=== PATIENT | male | born 1940 | race Caucasian/White ===

== ENCOUNTER → 2017-04-19 | Outpatient (CLI) | payer OTHER ==
[~2017-04-19] MED LIST: FLUO40CA8 PO; LISI40TA PO; MULT-506 PO; PRLSR20 PO; SIMV20TA5 OR
[2017-04-19 11:52] LABS: ALT/SGPT 26 U/L (12-78); AST/SGOT 19 U/L (15-37); BLOOD UREA NITROGEN 29 mg/dl (7-18); BUN/CREATININE RATIO 29.5 (10-20); CALCIUM 8.6 mg/dl (8.5-10.1); CARBON DIOXIDE 26 mmol/L (21-32); CHLORIDE 110 mmol/L (98-107); CHOLESTEROL 149 mg/dl (0-200); GLUCOSE 97 mg/dl (70-99); POTASSIUM 4.3 mmol/L (3.5-5.1); SODIUM 143 mmol/L (136-145)
[2017-04-19 12:15] LABS: ALB/GLOB RATIO 1.1 (0.9-2); ALKALINE PHOSPHATASE 59 U/L (45-117); CHOLESTEROL/HDL RATIO 4.1; HDL CHOLESTEROL 36 mg/dl; LDL CHOLESTEROL CALCULATED 91 mg/dl; TRIGLYCERIDES 110 mg/dl (0-150); VERY LOW DENSITY LIPOPROT CALC 22 mg/dl
== END | disposition home or self-care (01) ==
LOC: C.LABBC 07:13
PROVIDERS: ATTEND Internal Medicine Geriatric Medicine
DX: I10 Essential (primary) hypertension (principal); E78.5 Hyperlipidemia, unspecified; E03.9 Hypothyroidism, unspecified

== ENCOUNTER → 2017-04-28 | Outpatient (CLI) | payer OTHER ==
--- NOTE | 2017-05-03 14:03 | POLYSOMNOGRAPH REPORT ---
CLINICAL DATA: A 76-year-old male with a BMI of 27, referred by Dr. Efren Mo for evaluation of fatigue, decreased stamina, and decreased energy. He also has snoring. On the evening of 04/28/2017, a home sleep apnea test was performed using a vip[employer] type 3 monitor. RECORDING RESULTS: Total recording time was 10 hours. The patient's estimated sleep time and the patient's monitoring time was 9.3 hours. RESPIRATORY DATA: Mild sleep apnea was documented. The MCKAY was 9.8. There were 19 obstructive and 2 mixed apneic episodes. There were 70 hypopneic episodes. The longest respiratory event was 51 seconds. OXIMETRY DATA: Transient hypoxemia was seen. Oxygen tasha was 87%. Mean saturation was 92%. Time below 89% was 1 minute. HEART RATE DATA: Heart rate ranged from 44 to 49 beats per minute. SNORING DATA: Snoring was recorded throughout the night. IMPRESSION: Mild sleep apnea/hypopnea. RECOMMENDATIONS: The patient may benefit from the use of an oral appliance, use of auto CPAP, or a repeat sleep study with CPAP. Clinical correlation is needed. ALEXD
== END | disposition home or self-care (01) ==
LOC: C.NEUR 09:16
PROVIDERS: ATTEND Internal Medicine Geriatric Medicine
DX: G47.30 Sleep apnea, unspecified (principal)

== ENCOUNTER 2022-03-16 10:01 | Observation (INO) ==
--- NOTE | 2022-02-17 16:35 | PAT Medication Instructions ---
Medication Instructions Date of Service February 17, 2022 Home Medications fluoxetine 60 mg tablet 60 mg PO QAM multivitamin (Daily Multi-Vitamin tablet) 1 tab PO QAM acetaminophen 500 mg capsule 500 mg PO TID bupropion HCl 100 mg tablet 100 mg PO QAM famotidine 40 mg tablet 40 mg PO QAM olmesartan 40 mg tablet 40 mg PO QAM psyllium 1 packet PO QAM DO NOT take the morning of surgery multivitamin (Daily Multi-Vitamin tablet) 1 tab PO QAM olmesartan 40 mg tablet 40 mg PO QAM psyllium 1 packet PO QAM Take morning of surgery With a small sip of water, OTHERWISE NOTHING TO EAT OR DRINK AFTER MIDNIGHT: fluoxetine 60 mg tablet 60 mg PO QAM acetaminophen 500 mg capsule 500 mg PO TID bupropion HCl 100 mg tablet 100 mg PO QAM famotidine 40 mg tablet 40 mg PO QAM Take evening before surgery acetaminophen 500 mg capsule 500 mg PO TID Other Notes If you have any questions please call us at [phone] or [phone] or [phone] or [phone]
--- NOTE | 2022-02-19 11:58 | Anesthesiology Consultation ---
Date of Service February 19, 2022 Assessment & Plan (1) Encounter for pre-operative examination: - PCP office visit (02/16/22): " He had an elevated creatinine to 1.59 in October 2021 and has remained between 1.31.5.. Was on HCTZ and meloxicam prior to October 2021, but stopped taking after initial elevation in creatine [sic] in October.. We will continue to monitor and encourage hydration" - COVID screening: Per assessment on 02/17: No known COVID-19 positive contacts or current COVID-19 related symptoms. Travel screen negative. Patient vaccinated. At surgeon discretion if preop Covid testing being done. - Outpatient joint assessment: If surgeon requests review for outpatient joint pathway, case would need to be reviewed by anesthesiologist given relative contraindications. Chart Review Chart Review: Acceptable Risk for Surgery and Patient seen in Pre Admission Testing Teaching & Discussion Pre-Anesthesia Teaching/Discussion Notes: Instructed NPO after midnight before surgery,except medications with 15 cc of water. Medication instructions provided according to the PAT guidelines. History Surgery Operation Date: 03/16/22 11:30 Proposed Procedures p Right Total Knee Arthroplasty - López Pérez, DO Height/Weight Height: 5 ft 9 in Weight: 80.9 kg Allergies Allergy/AdvReac Type Severity Reaction Status Date / Time doxepin Allergy Intermediate Hives Verified 02/19/22 11:59 Medications Home Medications Medication Instructions Recorded Confirmed Last Taken fluoxetine 60 mg tablet 60 mg PO QAM #90 tabs 04/15/19 02/17/22 Unknown multivitamin (Daily Multi-Vitamin 1 tab PO QAM 04/15/19 02/17/22 Unknown tablet) acetaminophen 500 mg capsule 500 mg PO TID 02/17/22 02/17/22 Unknown bupropion HCl 100 mg tablet 100 mg PO QAM 02/17/22 02/17/22 Unknown famotidine 40 mg tablet 40 mg PO QAM 02/17/22 02/17/22 Unknown olmesartan 40 mg tablet 40 mg PO QAM 02/17/22 02/17/22 Unknown psyllium 1 packet PO QAM 02/17/22 02/17/22 Unknown Past Medical History Medical History CKD (chronic kidney disease) Stable- being monitored by PCP Creat 1.3-1.5 since 10/2021 GERD (gastroesophageal reflux disease) controlled HLD (hyperlipidemia) HTN (hypertension) Sleep apnea CPAP (compliant) Exercise / Class Metabolic Activity II 4-5 Yardwork/Stairs/Walk up hill (one FS (no CP, no SOB)) Past Family History Family History Other No pertinent family history Past Surgical History Surgical History History of cholecystectomy History of colonoscopy History of mandibular surgery 1960 (r/t trauma/"broken jaw" repair > no ROM limitations) Hx of excision of mass Lipoma Hx of inguinal hernia repair Hx of repair of left rotator cuff Hx of repair of right rotator cuff Past Anesthesia History No Hx of Anesthesia Complications and No Family Hx of Anesthesia Complications History of PONV No Hx of PONV and No Hx of Motion Sickness Social History Smoking Status: Former smoker tobacco type: cigarettes Do You Dip or Chew Tobacco: No Smoking End Date: Quit 50 years ago (hx 1 PPD) Hx Alcohol Use: Yes Alcohol type: beer alcohol intake frequency: a few times a week Hx Substance Use: No substance use type: does not use Review of Systems Patient denies chest pain, shortness of breath, dyspnea on exertion, fever, chills, cough, wheezing, palpitations. Physical Exam Vital Signs VITALS BP 144/68 P 59 TEMP 98.0 SP02 97%RA RESP 16 PHYSICAL Full cervical extension range of motion. Full TMJ range of motion. TMD 3 finger breaths Mallampati Score 1 Dentition: 6 remaining teeth on lower, no teeth on upper Lungs: clear throughout to auscultation Cardiac: regular rate and rhythm, no murmurs noted Spine: normal Carotid arteries: negative bruit Extremities: no edema Lab Results Anesthesia Preop Results Results Anesthesia Widget: WBC 5.22 K/ul (4.8-10.8) 02/19/22 Hgb 14.1 g/dl (14.0-18.0) 02/19/22 Hct 42.1 % (40.1-51.0) 02/19/22 Plt 194 K/uL (130-400) 02/19/22 PT 11.8 Seconds (9.0-12.0) 02/19/22 PTT 27.1 Seconds (21.0-31.0) 02/19/22 INR 1.1 (0.9-1.1) 02/19/22 Blood Type A Positive 02/19/22 Antibody Screen NEGATIVE 02/19/22 Testing Laboratory Results 02/13/22 SODIUM 138 POTASSIUM 4.9 CHLORIDE 104 CO2 26 BUN 24 CREATININE 1.5 GLUCOSE 107 Electrocardiogram Date: 02/19/22 NSR at 62bpm. NS STA. Chest X-Ray Date: 02/19/22 FINDINGS: The cardiomediastinal and hilar silhouettes are within normal limits. Lungs are mildly hyperinflated. No pneumothorax, pleural effusion, airspace consolidation or overt pulmonary edema. Mild linear scarring versus atelectasis of the left midlung. The bones appear grossly intact. Surgical clips of the upper abdomen. There is mild levoscoliosis of the lower thoracic spine. IMPRESSION: No acute process.
--- NOTE | 2022-03-12 08:39 | History & Physical Report ---
Date of Service March 12, 2022 Assessment & Plan (1) Osteoarthritis of right knee: We will proceed with a right total knee arthroplasty. Postoperatively he will be started on aspirin for DVT prophylaxis and kept overnight in the hospital for postoperative medical management. He plans to use energy physical therapy upon discharge. History of Present Illness Chief Complaint: Osteoarthritis of the right knee. Primary Care Provider: Brian Villatoro MD Luis Eduardo is a pleasant 81-year-old male who has been dealing with chronic worsening bilateral knee pain. Most of his pain is located in thefront of his knees. It hurts whenever he gets up from a seated position, whenever he walks down a hill, or goes up or downstairs. It is all anterior knee pain. He has had 3 injections in the past without much relief. X-rays show advanced patellofemoral arthritis. After failing conservative treatment, he has elected proceed with a right total knee arthroplasty. Allergies Allergy/AdvReac Type Severity Reaction Status Date / Time doxepin Allergy Intermediate Hives Verified 02/19/22 11:59 Home Medications Medication Instructions Recorded Confirmed Type fluoxetine 60 mg tablet 60 mg PO QAM #90 tabs 04/15/19 02/17/22 History multivitamin (Daily Multi-Vitamin 1 tab PO QAM 04/15/19 02/17/22 History tablet) acetaminophen 500 mg capsule 500 mg PO TID 02/17/22 02/17/22 History bupropion HCl 100 mg tablet 100 mg PO QAM 02/17/22 02/17/22 History famotidine 40 mg tablet 40 mg PO QAM 02/17/22 02/17/22 History olmesartan 40 mg tablet 40 mg PO QAM 02/17/22 02/17/22 History psyllium 1 packet PO QAM 02/17/22 02/17/22 History Past Med/Surg History Medical History CKD (chronic kidney disease) Stable- being monitored by PCP Creat 1.3-1.5 since 10/2021 GERD (gastroesophageal reflux disease) controlled HLD (hyperlipidemia) HTN (hypertension) Sleep apnea CPAP (compliant) Surgical History History of cholecystectomy History of colonoscopy History of mandibular surgery 1960 (r/t trauma/"broken jaw" repair > no ROM limitations) Hx of excision of mass Lipoma Hx of inguinal hernia repair Hx of repair of left rotator cuff Hx of repair of right rotator cuff Family History Other No pertinent family history Social History Smoking Status: Former smoker Second Hand Exposure: No; Hx Alcohol Use: Yes Alcohol type: beer Hx Substance Use: No Preferred Language: Spanish Communication Ability: Effective House Furnishings Supervisor Required: No Beliefs That Will Affect Care: None Current Living Situation: Spouse Feels Safe at Home: Yes Assistive Devices: CPAP, Denture - Upper, Denture - Lower and Glasses Review of Systems All systems reviewed & are unremarkable except as noted in HPI & below. Physical Exam On physical examination of the right knee, he has good motion of 0 to 120 degrees. Is a trace effusion. He has pain mostly in the patellofemoral region.. Constitutional WD/WN, vitals as above Eyes PERRL, conjunctivae normal, anicteric sclerae ENMT external ear and nose normal, oropharynx normal Neck trachea midline, no thyromegaly Respiratory normal respiratory effort, lungs clear to auscultation Cardiovascular RRR, no murmur, no edema Gastrointestinal (Abdomen) normal bowel sounds, soft, nontender, no hepatosplenomegaly Skin no rashes, warm and dry Psychiatric A+Ox3, euthymic affect Results & Data Results & Data Laboratory Results . Diagnostic Findings X-rays of the right knee do show advanced osteoarthritis with joint space narrowing osteophyte formation mostly in the patellofemoral region.. PG Care Time/CCT Total # of Minutes Spent Total Time Spent with Patient: Total time spent is greater than 50% in coordination of care (as documented) at patient's floor/unit and/or counseling patient: Coding Level of Care Code None Diagnoses Osteoarthritis of right knee M17.11
[~2022-03-16 10:01] MED LIST changes: +ACETAMINOPHEN 500 MG TAB PO SCH; +BUPIVACAINE 0.25% 30 ML VIAL ONE; +BUPIVACAINE 0.5 % 5 MG/1 ML PF 10ML VIAL ONE; +DEXAMETHASONE SOD INJ 4 MG/ML VIAL ONE; +EPINEPHrine INJ 1 MG/ML AMP ONE; +FAMOTIDINE 20 MG TAB PO SCH; -FLUO40CA8 PO; +GABAPENTIN 300 MG CAP PO SCH; +Ketorolac (*for OR use only*) 30 MG, dexAMETHasone 4 MG, KETAMINE HCL (**OR use only) 1... INFIL SCH; -LISI40TA PO; +LR 500ML BOLUS, THEN 15ML/HR IV SCH; +LR 60ML/HR IV SCH; -MULT-506 PO; -PRLSR20 PO; -SIMV20TA5 OR; +TRANEXAMIC ACID 1,000 MG **IV Intra-op IV SCH; +TRANEXAMIC ACID 1,000 MG **IV Pre-op IV SCH; +ceFAZolin 2000MG 2,000 MG/15 ML SYR IV SCH; +dexAMETHasone 4 MG TAB PO SCH
[2022-03-16] MEDS ORDERED: ONDANSETRON INJ 2 MG/ML 2 ML VIAL ONE (12:03)
[2022-03-16] MEDS ORDERED: LIDOCAINE 2% MPF LOCAL 5 ML VIAL INFIL ONE (12:03)
[2022-03-16] MEDS ORDERED: PROPOFOL IV EMULSION 10 MG/ML 20 ML VIAL IV ONE (12:03)
[2022-03-16] MEDS ORDERED: MIDAZOLAM HCL 1 MG/ML 2ML VIAL ONE (12:03)
--- NOTE | 2022-03-16 12:14 | History & Physical Bridge Note ---
Date of Service March 16, 2022 History & Physical Bridge Note I have examined the patient, reviewed the History & Physical and in the interval since the performance of the History & Physical I have noted the following changes of clinical significance: no changes noted
[2022-03-16] MEDS ORDERED: ORTHO JOINT ANESTHETIC ONE (12:54)
[2022-03-16] MEDS ORDERED: ONDANSETRON INJ 2 MG/ML 2 ML VIAL IV PRN ×2 (13:22→16:32)
[2022-03-16] MEDS ORDERED: ATROPINE SULFATE 0.1 MG/ML 10ML SYR IV PRN (13:22)
[2022-03-16] MEDS ORDERED: fentaNYL citrate 100 MCG/2 ML VIAL IV PRN (13:22)
[2022-03-16] MEDS ORDERED: ePHEDrine sulfate 50 MG/ML AMP IV PRN (13:22)
--- NOTE | 2022-03-16 15:07 | Operative Report ---
PG Post Operative Report Pre & Post Diagnosis Operation Date: 03/16/22 12:25 Pre-Op Diagnosis: (1) Osteoarthritis of right knee Post-Op Diagnosis: (1) Osteoarthritis of right knee I identified the patient and participated in the time-out.: Yes Procedure Operation Date: 03/16/22 12:25 Actual Procedures p Right Total Knee Arthroplasty(Right) - López Pérez DO Surgeon López Pérez DO Bottle Label Inspector López Johnston PA-C Estimated Blood Loss 30 Findings Consistent with Post-Op Diagnosis Specimens Right femoral and tibial bone Description of Procedure Implants used: I used a Joshua Persona total knee arthroplasty system with a size 10 standard femur, F tibia, 34 oval patella, and a size 14 medial congruent polyethylene bearing. All components were cemented in place with Biomet cement. Luis Eduardo carnes [facility] for the above procedure. He was seen in the preoperative holding area and the operative extremity was identified and signed. He was given a preoperative antibiotic, TXA, a spinal anesthetic and an adductor nerve block. He was taken back to the operating room and laid on the table in supine position. He was given basic sedation. The operative knee was then prepped and draped in sterile fashion. A timeout was done, and the patient and the operative extremity was properly identified. A midline incision was made directly over the patella. Dissection was taken down to the extensor mechanism. A subvastus arthrotomy was used. The medial retinaculum was released and the fat pad was mostly excised. The knee was flexed and the ACL, PCL, and meniscus were removed. A drill was sent down the center of the femoral canal followed by an intramedullary ronaldo. Off that ronaldo a distal femoral cutting block was placed. 9 mm was resected off the distal femur at 5 of valgus. A posterior referencing AP sizing guide was then placed on the distal femur. The femur measured to be a size 10. 2 drill holes were placed in 3 of external rotation. A 4-in-1 cutting block was then impacted into place. Anterior, posterior, and chamfer cuts were then made. The proximal tibia was then exposed. An external tibial alignment guide was placed. A tibial cut guide was then anchored in place and the proximal tibia was then resected. The posterior aspect of the knee was then opened up and any additional meniscus fragments and osteophytes were removed. The tibia measured to be a size F. The tibial plate was then placed in the appropriate rotation and the tibia was drilled and punched. Trial components were then placed. I used a size 14 medial congruent polyethylene insert. The knee was brought through a full range of motion and felt to be stable. The peg holes for the femoral component were then drilled. The patella was then everted and 9 mm was resected off the posterior aspect of the patella. The patella measured to be a size 34 oval. 3 peg holes were then drilled. A trial patella was placed. The knee was once again brought through a full range of motion and felt to be stable. Trial components were then removed. The surrounding soft tissues were injected with 100 cc of an orthopedic pain control cocktail. All components were then cemented into place with Biomet cement. The final polyethylene insert was then snapped into place. Once cement was dry the tourniquet was deflated. Hemostasis was obtained. A dilute betadyne lavage was then done for 3 minutes. The joint was then irrigated with normal saline solution. The subvastus arthrotomy was then closed with #1 Vicryl suture. The skin was closed with 2-0 Vicryl, 3-0V lock suture, and toñito. A soft compressive dressing was placed. He was then transferred to a hospital bed and taken to the postanesthesia care unit in stable condition. He tolerated the procedure well. López Johnston PA-C, was present for the entire procedure. He was critical for patient positioning, prepping, draping, retraction exposure, wound closure and application of sterile dressing. I attest to the content of the Intraoperative Record and any orders documented therein. Any exceptions are noted below.
--- NOTE | 2022-03-16 15:21 | Anesthesiology Progress Note ---
Date of Service March 16, 2022 Anesthesia Post Procedure Vital Signs Vital Signs: Temp Pulse Resp BP Pulse Ox O2 Del Method 03/16/22 10:25 36.7 C 58 L 20 157/78 H 98 Room Air 03/16/22 10:25 Room Air Transfer of Care Handoff Completed per policy Notes Mental Status: alert / awake / arousable Patient Amnestic to Procedure: Yes Nausea / Vomiting: adequately controlled Pain: adequately controlled Airway Patency, RR, SpO2: stable & adequate BP & HR: stable & adequate Hydration State: stable & adequate Neuraxial Anesthesia: was administered and sensory block is resolving Anesthetic Complications: no major complications apparent and Pt Satisfied with anesthetic care
--- NOTE | 2022-03-16 16:19 | XRay Report ---
XR knee RT 1 or 2V routine CLINICAL HISTORY: Postoperative evaluation. COMPARISON: Right knee radiographs March 05, 2020. FINDINGS: Alignment of the total right knee arthroplasty is anatomic. No periprosthetic fracture is present. There are skin toñito. There are no unexpected radiopaque foreign bodies. IMPRESSION: Expected findings following total right knee arthroplasty. ACT 112: Negative or not required by law. Electronically signed by: Matthieu Adams M.D. 03/16/2022 4:17 PM
[2022-03-16] MEDS ORDERED: MAGNESIUM HYDROXIDE SUSP 30 ML UDC PO PRN (16:32)
[2022-03-16] MEDS ORDERED: METOCLOPRAMIDE HCL INJ 5 MG/ML 2 ML VIAL IV PRN (16:32)
[2022-03-16] MEDS ORDERED: oxyCODONE HCL IR 5 MG TAB (IMMEDIATE RELEASE) PO PRN (16:32)
[2022-03-16] MEDS ORDERED: HYDROmorphone INJ 0.5 MG/0.5 ML SYR IV PRN (16:32)
[2022-03-16] MEDS ORDERED: NALOXONE HCL 0.4 MG/1 ML VIAL/CARP IV PRN (16:32)
[2022-03-16] MEDS ORDERED: bisacodyL 10 MG SUPP PR PRN (16:32)
[2022-03-16] MEDS: SODIUM CHLORIDE 0.9% 1000ML 1,000 ML IV SCH (17:08)
[2022-03-16] MEDS: KETOROLAC TROMETHAMINE 15 MG/ML VIAL IV SCH ×2 (17:09→22:06)
[2022-03-16] MEDS ORDERED: SENNA 8.6 MG TAB PO SCH (21:00)
[2022-03-16] MEDS: ceFAZolin 2000MG 2,000 MG/15 ML SYR IV SCH (21:05)
[2022-03-16] MEDS: ASPIRIN 81 MG ECTAB PO SCH (21:06)
[2022-03-16] MEDS: DOCUSATE SODIUM 100 MG CAP PO SCH (21:06)
[2022-03-16] MEDS: ACETAMINOPHEN 500 MG TAB PO SCH (22:06)
[2022-03-17] MEDS: SODIUM CHLORIDE 0.9% 1000ML 1,000 ML IV SCH (02:46)
[2022-03-17] MEDS: KETOROLAC TROMETHAMINE 15 MG/ML VIAL IV SCH ×2 (04:57→10:17)
[2022-03-17] MEDS: ceFAZolin 2000MG 2,000 MG/15 ML SYR IV SCH (04:57)
[2022-03-17] MEDS: ACETAMINOPHEN 500 MG TAB PO SCH (05:10)
--- NOTE | 2022-03-17 07:10 | Orthopedic Progress Note ---
Date of Service March 17, 2022 Assessment & Plan (1) Status post right knee replacement: Overall is doing very well. Is not having much pain in the right knee. He will be seen by physical therapy today for ambulation and range of motion exercises. He can be discharged home later today. He will follow-up with orthopedics in 2 weeks. He is on aspirin for DVT prophylaxis. Apolinar Hoff was seen and examined at bedside this morning. Overall is doing very well. Is not having much pain in the right knee. He has been up and ambulating to the bathroom. He has no complaints.. Review of Systems All systems reviewed & are unremarkable except as noted in HPI & below. Physical Exam On physical examination of the right knee, the leg is out full extension. He is able to do a straight leg raise. He has active dorsiflexion plantarflexion of his right ankle.. Results & Data Results & Data Laboratory Results . Diagnostic Findings Postoperative x-rays of the right knee show the prosthesis to be in anatomic alignment without any evidence of fracture, desiccation, or loosening. PG Care Time/CCT Total # of Minutes Spent Total Time Spent with Patient: Total time spent is greater than 50% in coordination of care (as documented) at patient's floor/unit and/or counseling patient: Coding Level of Care Code 82453 Post Operative Follow-Up Diagnoses Status post right knee replacement Z96.651
--- NOTE | 2022-03-17 07:11 | Discharge Summary ---
Date of Service March 17, 2022 Admission HPI (Per Admitting) Luis Eduardo is a pleasant 81-year-old male who has been dealing with chronic worsening bilateral knee pain. Most of his pain is located in thefront of his knees. It hurts whenever he gets up from a seated position, whenever he walks down a hill, or goes up or downstairs. It is all anterior knee pain. He has had 3 injections in the past without much relief. X-rays show advanced patellofemoral arthritis. After failing conservative treatment, he has elected proceed with a right total knee arthroplasty. Admission Exam (Per Admitting) On physical examination of the right knee, he has good motion of 0 to 120 degrees. Is a trace effusion. He has pain mostly in the patellofemoral region.. Principal Diagnosis Same as "Discharge Diagnosis" noted below under Discharge Instructions. Discharge Exam On physical examination of the right knee, the leg is out full extension. He is able to do a straight leg raise. He has active dorsiflexion plantarflexion of his right ankle.. Discharge Data Procedures Performed Operation Date: 03/16/22 12:25 Actual Procedures p Right Total Knee Arthroplasty(Right) - López Pérez DO Ordered Studies 03/16/22 05:00 US - OR guided needle placemen Routine Hospital Course (1) Status post right knee replacement: On March 16, 2022 Luis Eduardo arrived at [facility] and underwent a right knee replacement without complication. He had a spinal anesthetic. Postoperatively he was started on aspirin for DVT prophylaxis and transferred to the general orthopedic floors. His hospital course was uneventful. On postop day #1, his vital signs were stable and his pain was well controlled. He was able to participate well with physical therapy doing ambulation and range of motion exercises. He was then discharged home. He will follow-up with orthopedics in 2 weeks. PG Care Time/CCT Total # of Minutes Spent Total Time Spent with Patient: Total time spent is greater than 50% in coordination of care (as documented) at patient's floor/unit and/or counseling patient: Discharge Plan Discharge Items Patient Disposition: Home - Home Health Services Reason For Visit: POST OP Discharge Diagnosis: Right knee replacement Activity: As commented below Non-emergency contact: Surgeon Call non-emergency contact if: your wound has increased redness and your wound pain has increased Follow-up/Referrals: Brian Villatoro MD [Primary Care Provider] - Diet: Regular Addtl Attending Provider Instructions: Activity and Therapy Recommendations: * If you are using [facility] then therapy will be provided at your home until they feel you have accomplished all of your goals. * If you are using [facility] then Physical Therapy will be provided until they feel you are ready to start Outpatient Physical Therapy. * If you are not using home therapy then Outpatient Physical Therapy should start about 3-5 days from your day of surgery. Therapy will last about 6-10 weeks * It is important not to put a pillow under your knee when you are relaxing or sleeping. It is just as important to make sure you are getting your knee perfectly straight as it is to regain your knee bend. * You were shown a series of exercises in the hospital. Do these exercises three times each day including the exercises you were shown in physical therapy. * Get up and walk several times each day. For the first four weeks, try not to stand or walk for more than one hour at a time. If you do stand or walk for more than one hour, you will not hurt anything, but your leg will likely swell. * As you feel comfortable, you may change from the walker or crutches to a cane and then to independent walking. Medications: * Narcotic You will likely be sent home from the hospital with a prescription for the narcotic pain medication that worked best throughout your stay. * Aspirin Most patients will be required to take Aspirin 81mg twice a day for 6 weeks after surgery. This is obtained [id number] and a prescription is not necessary. * Other medications may be prescribed for specific circumstances. If you have any questions, please call the office at . * Resume previous home medications unless otherwise instructed TEDs/Elastic Stockings: The white elastic stockings help limit swelling and prevent blood clots from forming in your legs.~ The more you wear them, the more they work. Wear them for six weeks. Dressing Care: The dressing can be changed after physical therapy on postop day #1. Daily dry dressing changes for a few days, especially if the incision is still draining some. If the incision is not draining then you may leave the toñito open to air. If there is a little bit of drainage or if the toñito are getting stuck on your clothing then cover the incision with a dry dressing. The toñito will be removed at your 2 week follow-up appointment. Showering: You may shower 5 days from the day of surgery as long as the incision is no longer draining. You may shower with the toñito exposed. Let soapy water run over the toñito and pat them dry. Do not scrub or soak the incision. Things To Watch For: * Drainage from the incision site that occurs more than one week after your surgery. * Increased redness at the incision site. * Fever above 102 degrees Fahrenheit. * Unusual chest pain or shortness of breath. * Call [facility] at with any of the above problems Follow-Up Visit: Follow-up with Dr. Pérez's PA (López Johnston) 2-3 weeks after your day of surgery. He will remove your toñito and answer any questions. If you have any additional questions or concerns, Dr Pérez is usually in the office at the same time and will be available An appointment was probably scheduled when you signed-up for surgery in the office. If you have any questions call Office Instructions: More detailed instructions as well as Frequently Asked Questions were provided in a folder by our office when you signed-up for surgery. Please review these instructions when you get home. If you have any further questions or concerns, please feel free to call the office at [phone] Pending Studies at Discharge: No Stand-Alone Forms: My [facility], Smoking Cessation Medications and DC Order Prescriptions: New oxycodone-acetaminophen 5-325 mg tablet 1 tab PO Q6H PRN (Reason: pain) Qty: 30 0RF aspirin 81 mg Tablet,Delayed Release (Dr/Ec) 81 mg PO BID 42 Days Qty: 84 0RF Continued fluoxetine 60 mg tablet 60 mg PO QAM Qty: 90 multivitamin [Daily Multi-Vitamin] tablet 1 tab PO QAM famotidine 40 mg Tablet 40 mg PO QAM Metamucil Packet 1 packet PO QAM Rx Instructions: mix into at least 8 oz of water or juice before administering bupropion HCl 100 mg Tablet 100 mg PO QAM acetaminophen [Tylenol Extra Strength] 500 mg Capsule 500 mg PO TID olmesartan 40 mg Tablet 40 mg PO QAM Discharge Orders: Discharge Order (Routine); Ordered 03/17/22 Ordered By: López Pérez Admission Data Admit Date/Time: 03/16/22 15:36 Attending Provider: López Pérez Admit Provider: López Pérez Primary Care Provider: Brian Villatoro
[2022-03-17] MEDS ORDERED: dexAMETHasone 4 MG TAB PO SCH (08:00)
[2022-03-17] MEDS: DOCUSATE SODIUM 100 MG CAP PO SCH (08:08)
[2022-03-17] MEDS: ASPIRIN 81 MG ECTAB PO SCH (08:08)
[2022-03-17] MEDS ORDERED: MULTIVITAMIN TAB PO SCH (09:00)
[2022-03-17] MEDS ORDERED: buPROPion HCl 100 MG TABLET PO SCH (09:00)
[2022-03-17] MEDS ORDERED: OLMESARTAN MEDOXOMIL 40 MG TAB PO SCH (09:00)
[2022-03-17] MEDS ORDERED: FAMOTIDINE 40 MG TABLET PO SCH (09:00)
[2022-03-17] MEDS ORDERED: FLUoxetine HCL 20 MG CAP PO SCH (09:00)
== END 2022-03-17 12:16 | disposition home health service (06) ==
LOC: ASU 10:01 → 3W 10:01